=== PATIENT | female | born 1985 | race Caucasian/White ===

== ENCOUNTER 2017-05-23 17:37 | Emergency (ER) | payer OTHER ==
[~2017-05-23] VITALS: Ht 172.7 cm; Wt 71.4 kg
[~2017-05-23 17:37] MED LIST: DIAZ10 PO
[2017-05-23 17:47] VITALS: BP 144/83; PULSE 69; RESP 16; TEMP 98.5; O2SAT 98
[2017-05-23] MEDS ORDERED: ZITHTAB PO (17:57)
[2017-05-23] MEDS ORDERED: IPRA0.06 EACH NARE (18:17)
[2017-05-23] MEDS ORDERED: HYDR5SYP10 PO (18:17)
--- NOTE | 2017-05-23 18:18 | PD ---
HPI Chief Complaint: Cold / Flu Symptoms Time Seen by Provider: 18:03 Travel History International Travel<30 days: No Contact w/Intl Traveler<30days: No Traveled to known affect area: No History of Present Illness HPI Patient is a 31-year-old female presented to emergency department for evaluation of nasal congestion and cough. Patient states that the nasal congestion started 10 days ago, her cough started 3-4 days ago. She denies any fever, chills, nausea, vomiting, headache or shortness of breath. She states that she has a history of chronic sinusitis and has seen an ear nose and throat physician in the past. She admits to overusing oxymetazoline nasal spray. She states that she has to use it twice daily or she cannot breathe out of her nostrils. Patient reports going to an urgent care Center 3 days ago and was prescribed azithromycin. She is on day 3 of that. PFSH Past Medical History Medical History: Denies Significant Hx Diminished Hearing: No Medical other: Yes (chronic sinusitis) Immunizations Current: Yes Tetanus Vaccination: Unknown Influenza Vaccination: Yes ?: Not LMP: 05/20/17 : 0 Para: 0 Miscarriage: 0 : 0 Past Surgical History Surgical History: No Previous Surgery Social History Alcohol Use: Yes (2X WEEK) Tobacco Use: No Substance Use: No Allergies-Medications (Allergen,Severity, Reaction): Coded Allergies: No Known Allergies (Unverified Adverse Reaction, Unknown, 05/23/17) Reported Meds & Prescriptions Reported Meds & Active Scripts Active Hydrocodone-Homatropine Liq 5-1.5 Mg/5 Ml Syrp 5 Ml PO Q4H PRN Ipratropium Nasal 0.06% [place] 1 [place] EACH NARE QID Reported Zithromax Z-Macario (Azithromycin) 250 Mg Dspk 250 Mg PO DIRECTED 500 MG (2 tabs) day 1, then 1 tab days 2-5. Review of Systems Except as stated in HPI: all other systems reviewed are Neg General / Constitutional: No: Fever, Chills HENT: Positive: Rhinitis, Congestion, No: Headaches Cardiovascular: No: Chest Pain or Discomfort Respiratory: Positive: Cough, No: Shortness of Breath, Wheezing Gastrointestinal: No: Nausea, Vomiting, Abdominal Pain Physical Exam Narrative GENERAL: Well-developed, well-nourished, well-appearing female. SKIN: Warm and dry. HEAD: Atraumatic. Normocephalic. EYES: Pupils equal and round. No scleral icterus. No injection or drainage. ENT: Mucosa pink and moist. No erythema or exudates. No uvular edema. No uvular , palatal, or tonsillar deviation. Airway patent. Nasal turbinates appear edematous without nasal blood, positive for clear drainage, no septal hematoma. NECK: Trachea midline. No JVD. CARDIOVASCULAR: Regular rate and rhythm. RESPIRATORY: No accessory muscle use. Clear to auscultation. Breath sounds equal bilaterally. GASTROINTESTINAL: Abdomen soft, non-tender, nondistended. Hepatic and splenic margins not palpable. MUSCULOSKELETAL: Extremities without clubbing, cyanosis, or edema. No obvious deformities. NEUROLOGICAL: Awake and alert. No obvious cranial nerve deficits. Motor grossly within normal limits. Five out of 5 muscle strength in the arms and legs. Normal speech. PSYCHIATRIC: Appropriate mood and affect; insight and judgment normal. Data Data Last Documented VS Vital Signs Date Time Temp Pulse Resp B/P (MAP) Pulse Ox O2 Delivery O2 Flow Rate FiO2 05/23/17 17:58 98 Room Air 05/23/17 17:47 98.5 69 16 144/83 (103) Orders Orders Ed Discharge Order (05/23/17 18:18) MDM Medical Decision Making Medical Screen Exam Complete: Yes Emergency Medical Condition: Yes Interpretation(s) Vital Signs Date Time Temp Pulse Resp B/P (MAP) Pulse Ox O2 Delivery O2 Flow Rate FiO2 05/23/17 17:58 98 Room Air 05/23/17 17:47 98.5 69 16 144/83 (103) 98 Differential Diagnosis URI versus sinusitis versus allergic rhinitis versus other Narrative Course Patient is a 31-year-old female presenting to the emergency department for evaluation of nasal congestion and a cough for the last 10 days. Patient is well-appearing, she is currently on antibiotic that she was prescribed through an urgent care center for the last 3 days. Her vital signs are stable. She has a history of overusing oxymetazoline nasal spray. This may likely be contributing to her symptoms. At this time patient will be provided with a prescription for ipratropium nasal spray as well as cough medication to help treat her symptoms. She has already obtained [id number] Flonase, she is encouraged to use this as directed. She was also encouraged to continue antibiotics as previously prescribed. Patient verbalized understanding of discharge instructions as well as need for follow-up with her ENT and primary doctor. Diagnosis Primary Impression: Sinusitis Qualified Codes: J32.9 - Chronic sinusitis, unspecified Referrals: Ear / Nose / Throat Specialist Primary Care Physician Patient Instructions: General Instructions, Sinusitis (ED) Additional Instructions: Follow up with your ENT physician Follow up with your primary doctor Continued previously prescribed antibiotics Use nasal sprays as directed, continue flonase. Return to the emergency department for any new or worsening symptoms The cough medicine may make your drowsy, do not drive or operate machinery until you know how you react. Med/Other Pt SpecificInfo: Prescription(s) given Scripts Hydrocodone-Homatropine Liq (Hydrocodone-Homatropine Liq) 5-1.5 Mg/5 Ml Syrp 5 ML PO Q4H Y for COUGH, #120 ML 0 Refills Prov: Yandy Russell 05/23/17 Ipratropium Nasal (Ipratropium Nasal) 0.06% [place] 1 SPRAY EACH NARE QID, #1 BOTTLE 0 Refills Prov: Yandy Russell 05/23/17 Disposition: 01 DISCHARGE HOME Condition: Stable Yandy Russell May 23, 2017 18:18
== END 2017-05-23 18:28 | disposition home or self-care (01) ==
LOC: PHEFT 17:37
DX: J32.9 Chronic sinusitis, unspecified (principal)
CPT/HCPCS: 99284